=== PATIENT | female | born 1950 | race Caucasian/White ===

== ENCOUNTER 2018-10-31 05:05 | Inpatient (IN) | payer OTHER ==
[~2018-10-31] VITALS: Ht 167.6 cm; Wt 60.1 kg
--- NOTE | 2018-10-31 06:39 | NUR ---
PATIENT ARRIVED BY EMS ON 10/31/2018 @ 0530 AND ROOMED IN RM 523B. PATIENT REPORTS HER FULL NAME IS Angelica Tidwell 1950, 68 Y.O. f NEVER . WEARS GLASSES, BUT DOES NOT HAVE HER GLASSES WITH HER. VISION HAS GOTTEN WORSE OVER THE LAST FEW MONTH. HAS OWN TEETH, NO DENTURES, HEARING IS HARD TO HEAR, HAS NO HEARING AIDS. HAS A HEADACH ABOVE THE EYEBROWS AND FOREHEAD 5-6/10WHICH COMES AND GOES 3-4 TIMES A WEEK. OCCASIONALLY HAS BACK PAIN AND STIFF NECK. REPORTS NO MEDICAL ISSUES. WHEN ANXIOUS HER HEART POUNDS, AND BREATHS FAST, AND CANT CONTROL. FEELS LIKE I CANT GET AIR. SHAKES, ROCKING AND JERKING WHEN ANXIOUS. DOES NOT EAT MUCH AT ALL. DRINKS BOOST X 2-3 A DAY TO SUPPLEMENT FOOD INTAKE. HAS CONSTIPATION ALTERNATING WITH STOOL SOFTENERS AND LAXATIVE. DOES NOT SMOKE NOW, HAS SMOKED 18 YEARS AGO. REPORTS IS CONTINENT OF B&B. URINATES OFTEN, OTHERWISE, URINATES WITHOUT BURNING OR DISCOMFORT. UA NEGATIVE. REQUESTED BRIEFS, WHICH WERE PROVIDED. SKIN ON BOTTOM IS INTACT. D/C IV IN LFA, BRUISE IN R F A. PEDAL PULSES IN FEET, LESS THAN 3 SECONDS CAP REFILL. HEELS HAVE NO SPONGINESS OR BREAKDOWN. AT THIS TIME WAITING ON A COMPLETE MED LIST FROM SISTER. PATIENT HAS BEEN LIVING AT HOME WITH SISTER, WHO CANNOT CONTINUE TO CARE FOR HER. A&OX3-4.
[2018-10-31 10:17] LABS: HEMOGLOBIN 12.3 gm/dL (12.0-15.0); MCH 25.6 pg (26.0-34.0); MCHC 31.6 g/dL (28.0-37.0); RBC 4.82 mil/uL (4.20-5.00); RDW 17.7 % (10.5-14.5); WBC 11.9 thou/uL (4.0-11.0)
[2018-10-31 10:24] VITALS: BP 170/80
[2018-10-31 10:24] LABS: CALCIUM 9.4 mg/dL (8.5-10.1); CREATININE 0.8 mg/dL (0.6-1.0); MAGNESIUM 2.1 mg/dL (1.8-2.4); POTASSIUM 3.8 mmol/L (3.5-5.1)
--- NOTE | 2018-10-31 13:30 | NUR ---
Pt stated that she has been isolating due to social phobias and afraid of driving and public places. Pt lives alone in the home and has a supportive sister.
--- NOTE | 2018-10-31 18:48 | NUR ---
HAS BEEN VISIBLE IN DAYRROM WITH PEERS THROUGHOUT SHIFT-INITALLY REPORTS MOOD "SCARED/A LITTLE OVERWHELMED" BUT DOES APPEAR MORE RELAXED-SOCIAL WITH PEERS AND VISITNG WITH FEMALE PEERS AT SUPPER.
[2018-10-31 19:53] VITALS: BP 150/62
--- NOTE | 2018-11-01 02:59 | NUR ---
RECEIVED REPORT FROM OFFGOING DAY NURSE. ASSUMED CARE @ 19:15. IN BED EYES CLOSED, RESPIRATIONS EVEN AND UNLABORED. AWAKENED TO VOICE, COOPERATED WITH ASSESSMENT. AMBULATED TO TOILET WITH STAND BY ASSIST. SHAKING OF EXTREMITIES NOTED. REPORTS FEELS ANXIOUS AND TIRED. REPORTS LAID DOWN AFTER DINNER. PRN OLANZAPINE 5 MG PROVIDED @ 20:30, TYLENOL 650 PROVIDED FOR MLEO AND GENERAL DISCOMFORT. WITHIN 30 MINUTES NOTED TO HAVE EYES CLOSED, RESPIRATIONS EVEN AND UNLABORED. BED IN LOW POSITION, BED ALARM SET. CONTINUING TO MONITOR Q 12 MINUTES FOR PATIENT SAFETY.
--- NOTE | 2018-11-01 06:37 | NUR ---
SLEPT 10.5 HOURS. AWAKENED @ 0630 SHAKING AND C/O ANXIETY. PRN OLANZAPINE PROVIDED. WILL CONTINUE TO MONITOR FOR IMPROVEMENT.
[2018-11-01 09:33] VITALS: BP 137/82
--- NOTE | 2018-11-01 10:43 | NUR ---
UPON INITIAL APPROACH THIS AM LYING IN POSITION ON BED-ANXIOUS FACIAL EXPRESSION AND STUTTERING SPEECH BUT VERBALIZES "I AM SO ANXIOUS I CAN'T STOP THIS SHAKING" IS NOTED TO HAVE JERKING TYPE MOVEMENT OF TORSO AND UPPER EXTREMETIES WHICH SHE IS ABLE TO STOP UPON VERBAL COMMAND BUT IMMEDIATLY RESUMES STATING "I CAN'T CONTROL IT I NEED SOME MEDICINE" WAS RECEPTIVE TO DEEP BREATHING AND GROUNDING INSTRUCTION BUT THEN STATES "I CAN'T DO IT" OR "ITS NOT WORKING"VS OBTAINED AND BP AND PULSE WNL AT I37/80-P 82 02 SAT 98 PERCENT DESPITE RAPID SHALLOW (HYPERVENTALATING) STYLE BREATHING.
--- NOTE | 2018-11-01 18:06 | NUR ---
HAS COME OUT OF ROOM FOR SHORT INTERVALS TODAY-WHEN OUT IN DAYROOM BECOMES LOUDLY TEARFUL,SOBBING,RAPID RESPIRATIONS-DOES APPEAR SLIGHTLY CALMER IN ROOM WITH DECREASED STIMULUS-CONTINUES TO STATE SHE "CAN'T" DO RELAXATION OR GROUNDING EXERCISES AT THIS TIME BECAUSE ANXIETY IS "TO BAD" DID APPEAR TO NAP BRIEFLY APPROX 10 KMINUTES AFTER RECEIVING AM KLONOPIN BUT WAS TEARFUL UPON WAKING.ZYPREXA 5 MG PO PRN AT 1800 FOR CONTINUED SEVERE ANXIETY-DID COME OUT FOR SUPPER-REMAINS TEARFUL BUT NOT SOBBING
[2018-11-01 18:44] LABS: URINE BILIRUBIN NEGATIVE (Negative); URINE BLOOD TRACE (Negative); URINE CLARITY CLEAR; URINE COLOR YELLOW; URINE GLUCOSE-RANDOM* NEGATIVE (Negative); URINE KETONES NEGATIVE (Negative); URINE LEUKOCYTES-REFLEX NEGATIVE (Negative); URINE NITRITE-REFLEX NEGATIVE (Negative); URINE PROTEIN (DIPSTICK) NEGATIVE (Negative); URINE SPECIFIC GRAVITY 1.015 (1.005-1.035); URINE UROBILINOGEN 0.2 E.U./dl (0.2-1.0)
[2018-11-01 19:56] VITALS: BP 122/74
--- NOTE | 2018-11-01 20:02 | NUR ---
ASSUMED CARE ON 11/01/18. IN BED, EYES CLOSED RESPIRATIONS EVEN AND UNLABORED AWAKENS TO VOICE AND APPEARS TO BE CALM AND SMILES WHEN SHE SPEAKS. NO SHAKING OR TEARFULNESS OBSERVED AT THIS TIME. UP OUT OF BED AND AMBULATES THRU THE HALLS AND INTO THE DAY ROOM WATCHING TELEVISION FOR A SHORT TIME AND THEN AMBULATING BACK TO HER ROOM. WILL CONTINUE TO MONITOR Q 12 FOR PATIENT SAFETY.
--- NOTE | 2018-11-02 00:33 | NUR ---
OUT OF BED @ 2300, REFILLED HER ICE WATER AND THEN AMBULATED BACK TO BED. SLEEPING AT THIS TIME. BED IN LOW POSITION, BED ALARM SET, WILL CONTINUE TO MONITOR Q 12 FOR PATIENT SAFETY.
[2018-11-02 03:24] VITALS: BP 122/74
[2018-11-02 05:43] LABS: HEMATOCRIT 35.5 % (37.0-47.0); HEMOGLOBIN 11.6 gm/dL (12.0-15.0); MCH 26.3 pg (26.0-34.0); MCHC 32.6 g/dL (28.0-37.0); MCV 80.6 fL (80.0-100.0); RBC 4.41 mil/uL (4.20-5.00); RDW 17.5 % (10.5-14.5); WBC 6.6 thou/uL (4.0-11.0)
--- NOTE | 2018-11-02 05:47 | NUR ---
SLEPT 8.2 HOURS
[2018-11-02 09:01] VITALS: BP 141/80
--- NOTE | 2018-11-02 12:09 | NUR ---
0700: Report rec from noc shift, care assumed. [id number]: Ambulatory independently in room, hedrick and to , pt voices nervous feeling. Ambulatory to , gait steady, feeds self, takes meds whole w/o difficulty. Anxiety noted with activity and interaction, Zyprexa 5mg po given @ 09, takes meds whole w/o difficulty. Pt reurned to room after a.m. meal, appetite poor, this nurse walked pt from room to common area for 09 therapy group, no participation noted.
[2018-11-02 19:56] VITALS: BP 120/68
--- NOTE | 2018-11-02 22:33 | NUR ---
PT PACING WOOD AND WATCHING TV WITH PEERS. PT REQUESTED STOOL SOFTENER AND SLEEPING PILL WINDOW DISPLAY DESIGNER CONTACTED AND ORDERS RECEIVED. GOOD EYE CONTACT, BLUNTED AFFECT, STEADY GAIT.
[2018-11-03 08:45] VITALS: BP 156/92
--- NOTE | 2018-11-03 16:49 | NUR ---
SW observe the pt she seem very anxious in worried that she will have to stay in the hospital until her guardianship. VLADIMIR explained at this time the hospital will not be filing for guardianship. VLADIMIR explained the doctor is running test, and reassuring the pt that medication is assisting her with stabilizing her mentally. VLADIMIR will follow-up with on tommorrow.
--- NOTE | 2018-11-03 17:35 | NUR ---
ASSUMED CARE AT 0700 THIS MORNING. PT. INITIALLY WALKING DOWN THE WOOD ASKING FOR STAFF TO ASSIST HER. THIS RN WALKED TO THE DINING ROOM WITH HER AND ALLOWED HER TO SIT DOWN. AFTER BREAKFAST, THIS RN SAT DOWN AND TALKED WITH THE PT. SHE WAS INFORMED STAFF WILL BE WATCHING OVER HER, BUT NOT NECESSARILY DOING THINGS FOR HER. SHE STATED, "YOU AREN'T HELPING ME TO DO ANYTHING?" I INFORMED THAT STAFF WILL WATCH OVER HER, BUT SHE COULD DO THINGS FOR HERSELF. SHE WAS LATER NOTED TO BE UP WALKING, NO SHAKING AND NO ANXIETY NOTED. AT DIFFERENT TIMES DURING THE DAY SHE WOULD ASK FOR ANXIETY MEDICATIONS. SHE DID RECEIVE THAT TIMES ONE TIME. SHE WAS ON THE UNIT FOR GROUPS. SHE DENIES SI/HI OR AVH TODAY. SHE WAS COOPERATIVE WITH TAKING MEDICATIONS.
[2018-11-03 20:04] VITALS: BP 130/81
--- NOTE | 2018-11-03 22:00 | NUR ---
Pt reported increased anxiety at shift change. Hs meds provided, Dr Teague on unit increased hs does of medication, pt informed and compliant. No tremors noted until pt was holding water and cup of medications. Blunted affect, good eye contact, clear speech, steady gait. Pt verbalized concern re her dc plans, that when she came here she thought it would be for more than a few days. pt stated her younger sister has anxiety but not as much as pt.
--- NOTE | 2018-11-04 04:09 | NUR ---
PT AWAKENED REPORTED WANTING TO GET READY FOR THE DAY BUT ANXIOUS. PT INFORMED IT WAS ONLY 0345 AND SHE SHOULD CONTINUE RESTING AND NOT WORRY ABOUT GETTING UP AND READY FOR THE DAY. PT HAS SHAKES INTERMITTENTLY, WHEN SHE IS INTERACTING IN CONVERSATION THE SHAKES DECREASE.
--- NOTE | 2018-11-04 05:47 | NUR ---
PT FELL ASLEEP APPROXIMATELY ONE HOUR AFTER PRN MEDICATION.
--- NOTE | 2018-11-04 13:41 | NUR ---
0715: Report rec from [facility] shift, care assumed. [id number]: Ambulatory independently in room, halls and to DR for a.m. meal, gait steady, feeds self, appetite fair, takes meds whole w/o difficulty. Intermittent anxiety noted, PRN Zyprexa given, with minimal improvement. New orders rec for colace BID and Miralax PRN, education provided to pt about medications. Attended 0900 therapy group, minimal participation noted. Cooperative with staff and social with other pts.
[2018-11-04 19:44] VITALS: BP 130/78
--- NOTE | 2018-11-04 22:20 | NUR ---
RECEIVED REPORT FROM OFFGOING DAY NURSE AND ASSUMED CARE @ 19:15. SITTING IN THE DAY ROOM WITH PEERS WATCHING BASEBALL ON TV. REPORTS THIS IS THE BEST THAT SHE HAS FELT SINCE SHE ARRIVED AT THE HOSPITAL. A&O X 3. HRRR, LUNGS CTA, ABD NORMOACTIVE X 4 Q. DENIES SI AND HI. DENIES HALLUCINATIONS. REPORTS ANXIETY IS THE BEST THAT IT HAS BEEN SINCE SHE ARRIVED AT THE HOSPITAL. REPORTS SHE WANTS A SLEEPING PILL. MELATONIN 5 MG PROVIDED FOR INSOMNIA, AND TYLENOL 650 PROVIDED FOR GENERAL PAIN.
--- NOTE | 2018-11-05 06:32 | NUR ---
slept 7 hours overnight
[2018-11-05 09:50] VITALS: BP 142/83
[2018-11-05 10:46] VITALS: BP 142/83
--- NOTE | 2018-11-05 17:58 | NUR ---
PT. STARTED THE SHIFT AT 0700 ASKING FOR "SOMETHING FOR MY NERVES". PT. GIVEN HER 0900 MEDICATIONS. SHE MADE NO MORE COMPLAINTS ABOUT HER "NERVES" UNTIL 1200. SHE ASKED FOR PRUNE JUICE SO HER BOWELS WOULD MOVE. SHE DRANK THAT WITHOUT PROBLEMS. SHE RECEIVED TYLENOL FOR BACK PAIN. SHE TOOK HER MEDICATIIONS WITHOUT PROBLEMS NOTED. SHE AT MEALS ON THE UNIT. SHE ATTENDED GROUPS. WHEN ASKED ABOUT SI/HI, SHE DENIED IT. NO S/S AVH NOTED. SHE HAS BEEN NEEDY AND ASKING FOR ATTENTION OFTEN FROM PEERS AND STAFF.
[2018-11-05 19:42] VITALS: BP 124/77
--- NOTE | 2018-11-05 22:25 | NUR ---
RECEIVED REPORT FROM OFFGOING DAY NURSE. ASSUMED CARE @ 19:15. UP AD CURTIS AMBULATING FROM THE DAY ROOM THRU THE HALLWAYS TO HER BED ROOM AND BACK TO THE DAY ROOM. ASKING FOR HER SLEEPING MEDICINE. WHEN ORIENTED TO THE TIME AND EXPLAINED THAT SHE WILL BE GETTING HER NIGHT MEDS CLOSER TO 2100, SHE CONTINUED AMBULATING. PRNS MELATONIN, TYLENOL 650 AND MIRILAX 17 GM PROVIDED @ 21:15. A&OX 4. REPORTS REASON SHE IS IN THE HOSPITAL NOW IS DUE TO MULTIPLE PANIC ATTACKS TAKING HER TO THE ER X 3. REPORTS HAS HAD SMALL BM SINCE ARRIVING @ [facility]. IN BED AND ASLEEP WITHIN 30 MINUTES OF TAKING HS MEDS. BED IN LOW POSITION, WILL CONTINUE TO MONITOR Q 12 MINUTES.
[2018-11-05 22:32] VITALS: BP 124/77
--- NOTE | 2018-11-06 00:46 | NUR ---
AWAKENED @ 0040, TOILETED SELF, THEN ASKED FOR TOWELS TO TAKE A SHOWER. THE AIDE ATTEMPTED TO ASSIST HER WITH A SHOWER, SHE BECAME TEARFUL AND SAID THAT SHE DID NOT KNOW WHAT TO DO. CONFUSION AND ANXIETY NOTED. GIVEN @ 0040, PATIENT HAD A SMALL BOOK OF DAILY WORDS OF ENCOURAGEMENT. I ASKED HER TO READ TODAYS MESSAGE, WHICH SHE DID WITH ENCOURAGEMENT, THEN AFTER SHE TOOK THE MEDICATION FOR ANXIETY, I READ A MESSAGE AND WE REPEATED THE SHORT VERSE TOGETHER, TWO TIMES. I ENCOURAGED HER TO THINK OF ENCOURAGING THOUGHTS AND SHE LAID DOWN AND TRIED TO SLEEP, WILL CONTINUE TO MONITOR Q 12 FOR PATIENT SAFETY.
--- NOTE | 2018-11-06 06:12 | NUR ---
SLEPT 8.2 HOURS OVERNIGHT 11/05/18.
[2018-11-06 07:35] VITALS: BP 153/89
--- NOTE | 2018-11-06 12:46 | NUR ---
Date of Admission: 10/31/18 Date of Activity Therapy Assessment: 11/03/18 Activity Goal: Decrease social isolation and anxiety symptoms Initial Goal: 1 Group activity/day Weekly progress towards goal: On track Group participation level: Moderate Behaviors observed: Patient has not consistently met goal. She exhibits high level of anxiety and at times will become panicked and unable to participate, returning to her room. Patient also exhibits poor concentration and will dismiss self from group early. Plan: No change towards goal
--- NOTE | 2018-11-06 12:53 | NUR ---
VLADIMIR schedule a FM on November 09, 2018 at 11:30am.
[2018-11-06 12:57] VITALS: BP 153/89
--- NOTE | 2018-11-06 15:49 | NUR ---
ASSUMED CARE AT 0700 TODAY. PT. HAS TALKED ABOUT BEING ANXIOUS TODAY BUT HAS ONLY ASKED ONCE AT 1545 FOR ANXIETY MEDICATION. SHE HAD HER ANTIANXIETY MEDICATION AT 1400 TODAY. SHE TOOK HER MEDICATION WITHOUT PROBLEMS. SHE HAD TYLENOL ABOUT 1500 FOR C/0 OF HEADACHE. SHE ATTENDED GROUPS. SHE HAS BEEN WALKING THE HALLS OFTEN TODAY. SHE HAS BEEN STEADY ON HER FEET. SHE HAS SHOWN LITTLE SIGNS/SYMPTOMS OF SHAKING TODAY. SHE ATE MEALS ON THE UNIT. SHE HAS BEEN PLEASANT WHEN TALKING WITH STAFF AND PEERS. SHE HAS BEEN OUT OF HER ROOM MOST OF THE DAY.
[2018-11-06 19:27] VITALS: BP 154/85
--- NOTE | 2018-11-07 06:21 | NUR ---
VSS, TOOK HS MEDS WHOLE WITH WATER. ANXIETY WELL MANAGED IN THE EVENING, SLEPT WELL, IN BED ALL NIGHT, TOTAL SLEEP HOURS 8.0.
[2018-11-07 07:23] VITALS: BP 136/82
[2018-11-07 20:28] VITALS: BP 128/79
--- NOTE | 2018-11-07 23:39 | NUR ---
Care assumed of patient at 1915: Patient seated in day room at start of shift. Patient watching TV with other peers. Interacting well with staff and peers. Appears to be anxious at times but is far less anxious than previous shifts. Patient denies SI/HI/AH/VH. No s/s of delusional or paranoia behaviors. Denies pain or discomfort. Ate 100% HS snack. Took HS medication without difficulty. Patient reported that she is feeling dizzy at times. Patient then asked for a medication to help her sleep. Patient educated on scheduled medication given and PRN medication available. Patient then educated on possible side effects of each medication. Patient reported that she would like to try to go to sleep without additional PRN medication. Patient educated on a needed adjustment period for her body to get used to medication prescribed. Patient grateful and appeared less anxious afterward. Patient smiled a couple times this shift and doesn't appear to be having the anxiety tremors that she has had in previous shifts. Patient was able to retire to bed and go to sleep without any difficulty. Patient has been resting quietly since.
[2018-11-08 09:05] VITALS: BP 146/86
[2018-11-08] MEDS ORDERED: PAXIL10 MG PO (11:10)
[2018-11-08] MEDS ORDERED: CLONAZEPAM 0.50.5 M1 PO (11:11)
[2018-11-08] MEDS ORDERED: NORVASC5 MG PO (11:11)
[2018-11-08] MEDS ORDERED: LIPITOR10 MG PO (11:11)
[2018-11-08] MEDS ORDERED: XANAX 0.25 MG0.25 MG PO (11:12)
[2018-11-08] MEDS ORDERED: PROPRANOLOL 1010 MG PO (11:12)
[2018-11-08] MEDS ORDERED: IRON325 PO (11:12)
[2018-11-08] MEDS ORDERED: TRAZODONE HCL50 MG PO (11:12)
[2018-11-08] MEDS ORDERED: PROZAC20 MG PO (11:13)
[2018-11-08] MEDS ORDERED: BUSPIRONE HCL10 MG PO (11:13)
--- NOTE | 2018-11-08 19:18 | NUR ---
PATIENT REPORTS INCREASED ANXIETY THIS MORNING. PATIENT MAKING NOTICEABLE ATTEMPTS TO PARTICIPATE IN GROUPS. PATIENT DID REQUEST SHORT TIME IN ROOM APPROX 15-20 MIN. PATIENT CAME BACK TO DINING WOOD WITHOUT PROMPTING. STATED THAT SHE FELT LIKE SHE NEEDED A MOMENT AWAY DUE TO ALL THE NOISE OF DINING WOOD. PATIENT IN DINING WOOD MOST OF DAY. PATIENT UP AD CURTIS WITH STEADY BALANCED GAIT. PATIENT DID REPORT FEELING DIZZY WITH MEDICATION, DR. MILLS INFORMED OF PATIENT CONCERNS.
--- NOTE | 2018-11-08 22:45 | NUR ---
Care assumed of patient at 1915: Patient alert and oriented x4. Patient pleasant and cooperative. Patient anxious this shift. Denies SI/HI/AH/VH. No s/s of delusional or paranoia behaviors. Patient has a bilateral hand tremor at times. Patient has been doing well removing the words "I can't" out of her vocabulary and starting to say "I'm having trouble with .....". Patient seated in day room at the start of shift with other peers. Interacting well with staff and peers. At the start of shift, patient reports that she is frustrated that her medication regimen is not working well for her at this time. Reports that she doesn't want to take any medication anymore. Ordered medications were reviewed with patient. Discussed side effects and uses. Patient grateful for education. Patient ate 100% HS snack. Took HS medication without difficulty. Patient requested for her laundry to be washed. Which staff is assisting with. Patient retired to bed, then came out of her room 10 minutes later stating she can't sleep and she needs more pills. Nurse spoke with patient about praying, meditation, reading, writing. Discussed finding alternate coping mechanisms to become relaxed rather than taking more medication. Patient stated that she would try to take deep breaths and pray. Nurse followed up 20 minutes later and patient was sleeping quietly. Patient continues to rest quietly at this time.
[2018-11-09 09:33] VITALS: BP 146/85
[2018-11-09 11:48] VITALS: BP 146/85
--- NOTE | 2018-11-09 15:04 | NUR ---
PATIENT REPORTS INCREASE IN ANXIETY AT THIS TIME. REQUESTED PRN MEDICATION FOR ANXIETY. REPORTS NEEDING TO HAVE ALONE TIME IN ROOM BUT AFRAID TO BE ALONE AT THE SAME TIME. PATIENT VOICING CONCERNS ABOUT HOW SHE WILL BE ABLE TO MANAGE ANXIETY AT HOME. STATES THAT SHE DOES NOT WANT TO HAVE MEDS THAT PUT HER TO SLEEP THROUGHOUT THE DAY. INQUIRING ABOUT MEDICATION SHE WILL BE PRESCRIBED TO GO HOME WITH. REPORTS THAT CLONAZEPAM AND XANAX PREVIOUSLY WORKED FOR HER WITHOUT MAKING HER SLEEPY. STATES THAT SHE IS CURRENTLY BETWEEN PCP'S AND THAT HER PREVIOUS PCP DOES NOT PRESCRIBE HER ANXIETY MEDS.
--- NOTE | 2018-11-09 16:57 | NUR ---
PATIENT CALM AND ALERT THIS MORNING. STATES THAT SHE FEELS LESS DIZZY AND FOGGY. STATED THAT SHE SLEPT WELL. NO NEED FOR PRN MEDS UNTIL AFTERNOON GROUP. PATIENT STATED SHE HAD DIFFICULTY BEING IN SMALL ROOM WITH OTHER PATIENTS. PRN MEDS GIVEN PER ORDERS. PATIENT WENT TO ROOM TO REST AND MANAGE ANXIETY FOR APPROX 15-20 MIN. STATES SHE DOES NOT KNOW IF MEDS ARE WORKING BUT WAS ABLE TO RETURN TO DINING WOOD WITHOUT ANY PROMPTING. IN DINING WOOD AND JOKED WITH STAFF ABOUT MAG CITRATE DOSE WHEN PATIENT ASKED FOR HERE MEDS FOR CONSTIPATION. CHOSE TO SIT WITH OTHER PATIENTS AT TABLE POST PRN MEDICATION.
[2018-11-10 01:21] VITALS: BP 146/85
--- NOTE | 2018-11-10 04:51 | NUR ---
PT ANXIOUS, AND ON THE EDGE OF THE GROUP. AFTER EVENING SNACKS, REQUESTED MEDS EARLY AND SOMETHING FOR SLEEP. ADVISED THAT SHE HAD ZYPREXA AND MELATONIN. CLAIMS THAT TRAZADONE WORKED WELL FOR HER IN THE PAST. SUGGESTED SHE INFORM MD IN THE AM OF HER PREFERENCE. SLEPT UNTIL ABOUT MIDNIGHT, PROVIDED PRN OF ZYPREXA, AND PT SLEPT WELL THE REST OF THE NIGHT TO THIS POINT.
[2018-11-10 07:30] VITALS: BP 127/78
--- NOTE | 2018-11-10 07:40 | NUR ---
PT STATED SHE DIDN'T FEEL GOOD TODAY, PT STATED THAT SHE DIDN'T SLEEP VERY WELL WAS UP AT 0100. PT STATED SHE TOSSED AND TURNED. PT STATED SHE IS HAVING LOOSE STOOLS AND TOOK A LAXATIVE AND IS WORRIED ABOUT NOT HAVING SOLID STOOL FIRST. PT HANDS SHAKEY AND ARMS. PT DENIES ANY NAUSEA OR PAIN. DISCUSSED ABOUT PT ANXIETY AND THAT HER MOM AND AUNT HAD ANXIETY AND HERS STARTED IN JULY. PT STATED SHE IS ALSO CLAUSTROPHOPIC. PT STATED THE ZYPREXIA IS NOT HELPING WITH ANXIETY, IT IS PRN.
[2018-11-10 09:37] VITALS: BP 127/78
--- NOTE | 2018-11-10 11:27 | NUR ---
Nutrition: Pt assessed for LOS on [facility] unit. Admitted with unspecified anxiety disorder. Met with her in day area. Pt very appropriate for interview. She is averaging 68% of meals over the last 5 days, on a regular diet. She denies any appetite or po intake concerns. Does report struggling with constipation and has been taking bowel meds to help. Notes finally having some liquid stool output last night. States stomach no longer hurts or feels firm. Remain on scheduled docusate Na, plus PRN Miralax and Milk of Mag. RD educated on high fiber foods, increased water intake and increased activity. Pt admits her activity has been significantly reduced the last 1-2 months d/t health. At a healthy wt and BMI 21.4 kg/m2. No further needs. Low nutrition risk.
[2018-11-10 19:39] VITALS: BP 118/74
[2018-11-10 22:11] VITALS: BP 118/74
[2018-11-11 11:19] VITALS: BP 145/79
[2018-11-11 11:20] VITALS: BP 135/85
--- NOTE | 2018-11-11 13:08 | NUR ---
PT STATED SHE STILL HAS SOME DIZZINESS, PT STATED THAT SHE HAS TAKEN CLONZEPAM BEFORE BUT NOT THREE TIMES A DAY AND SHE IS WORRIED IF SHE GOES SOMEWHERE, THEY WILL NOT BE ABLE TO UNDERSTAND LIKE WE DO. SHE UNDERSTANDS THAT SHE NEEDS SOMETHING FOR ANXIETY.
--- NOTE | 2018-11-11 15:00 | NUR ---
REFUSED [address] MILLS AWARE.
--- NOTE | 2018-11-11 16:18 | NUR ---
PT STATED THAT HER DIZZINESS IS BETTER. PT APPEARS MORE ALERT NOT FOGGY.
--- NOTE | 2018-11-11 17:32 | NUR ---
ADM TYLENOL 325MG 2 TABS FOR COMPLAINS OF NOT FEELING GOOD. PT STATED SHE IS AFRAID OF TELLING DUE TO HER NEEDING THE MED FOR HER ANXIETY.
--- NOTE | 2018-11-11 18:44 | NUR ---
ADM ZYPREXIA 5MG PO FOR ANXIETY. PT SHAKING TO HANDS.
[2018-11-11 19:16] VITALS: BP 126/72
--- NOTE | 2018-11-12 01:19 | NUR ---
PATIENT AMBULATED AD CURTIS TO ROOM, AND LAID DOWN IN BED IN THE EARLY EVENING. PT TOOK HS MEDS WHOLE WITH WATER. DENIES HI, SI. C/O AGITATION AND ANXIETY. HAD BM TODAY. WILL CONTINUE TO MONITOR.
[2018-11-12 09:30] VITALS: BP 138/79
--- NOTE | 2018-11-12 12:39 | NUR ---
Had called and left a message with Carlos Mccallum to inquire about Respite care. Rebekah just called back and left a VM that they had no respite beds. Faxing infor to [facility] as they do have beds and will wait to hear back from Aaliyah
--- NOTE | 2018-11-12 15:55 | NUR ---
HAS HAD EPISODES OF INCREASED ANXIETY TODAY PER PT REPORT DURING 1;1 INTERACTION. TRIGGER TO ELEVATED ANXIETY LEVEL APPEARS TO BE POSSIBLE DC WITHIN NEXT DAY OR TWO-NOTED TO BE WRINGING HANDS,INCREASED ANXIOUS FACIAL EXPRESSION WHEN SPEAKING ABOUT SELF DOUBTS AND WHAT IF SCENERIOS AFTER DC. MINIMAL RESPONSE TO SUPPORT/EDUCATION PROVIDED- "I DON'T THINK I CAN DO IT" OR "I AM NOT THAT STRONG" ETC
[2018-11-12 20:21] VITALS: BP 140/80
--- NOTE | 2018-11-13 00:38 | NUR ---
Care assumed of patient at 1915: Patient alert and oriented x4. Patient pleasant and cooperative. Patient has some anxiety present, reporting anxiety about discharge. Appears calmer than previous shifts. Ate 100% HS snack. Reports that she feels like she is "starving". Patient given extra snack this PM. Patient denies any pain or discomfort. Denies SI/HI/AH/VH. No delusional or paranoia behaviors observed. No visible extremity tremors observed. Reports that she is tired and retired to bed earlier than usual this shift. Patient awoken to give HS medication. Patient reports that she is nervous about discharge but is hopeful that it will be a good place for her to live. Patient resting quietly in bed at this time.
[2018-11-13 07:30] VITALS: BP 137/68
--- NOTE | 2018-11-13 07:30 | NUR ---
PT ANXIOUS TODAY STILL HAS SOME DIZZINESS. PT UP WALKING WITH STEADY GAIT. PT WANTED TYLENOL DUE TO NOT FEELING GOOD. PT LUNGS CLEAR. PT STATED SHE HAD A SMALL BOWEL MOVEMENT AND WANTED A LAXATIVE. SHE WANTED METAMUCIL THIS AM.
--- NOTE | 2018-11-13 08:17 | NUR ---
Left another message for Irina at [facility]
--- NOTE | 2018-11-13 08:18 | NUR ---
ADM MIRALAX 17GM PO FOR COMPLAINTS OF CONSTIPATION.
[2018-11-13 08:29] VITALS: BP 137/68
--- NOTE | 2018-11-13 09:58 | NUR ---
ADM ZYPREXIA 5MG PO FOR ANXIETY.
--- NOTE | 2018-11-13 12:49 | NUR ---
Date of Admission: 10/31/18 Date of Activity Therapy Assessment: 11/03/18 Activity Goal: Manage anxiety symptoms Initial Goal: 1 Group activity/day Weekly progress towards goal: Achieving current goals Group participation level: Varies Behaviors observed: Patient participates consistently in 2 groups per day. Participation varies based on level of anxiety. Patient remains in room entire session and has improved in confidence (sharing thoughts with group members.) Plan: 2 groups per day
[2018-11-13] MEDS ORDERED: LIPITOR10 MG PO (14:58)
[2018-11-13] MEDS ORDERED: NORVASC5 MG PO (14:58)
[2018-11-13] MEDS ORDERED: CLONAZEPAM 0.50.5 M1 PO (14:59)
[2018-11-13] MEDS ORDERED: REMERON 30 MG T30 M1 PO (15:00)
[2018-11-13] MEDS ORDERED: ZYPREXA 5 MG TAB5 M1 PO ×2 (15:01→15:03)
--- NOTE | 2018-11-13 15:14 | NUR ---
Pt discharging this afternoon to [facility] - arranged for a W/C transport between 5-5:30 this afternoon. Contact for this teletypewriter operator was Shannon - [phone]. Spoke to sister and gave her update. Sister happy with d/c plans and will contact them with her contact info.
--- NOTE | 2018-11-13 16:58 | NUR ---
GAVE REPORT TO MYNOR AT [facility]. PT SUPPOSED TO LEAVE VIA W/C.
--- NOTE | 2018-11-13 18:35 | NUR ---
PT LEFT VIA W/C VAN TO [facility]. PT HAD JUST LAID DOWN TO REST WHEN RIDE CAME. PT APPEARED CALM WHEN LEAVING.
--- NOTE | 2018-11-15 11:13 | D ---
[facility] [place] [address] DISCHARGE SUMMARY Name: ULYSSES ARREGUIN Room #: 523B-B [facility] IN M.R.#: [id number] Admission: 10/31/18 Attend Phys: Tyrell Levine DO Discharge: 11/13/18 Date of : 50 Report #: [id number] THIS REPORT FOR: //name// CC: Tyrell Levine [facility] unknown DATE OF SERVICE: 11/13/2018 PSYCHIATRIC DISCHARGE SUMMARY ATTENDING PHYSICIAN: Tyrell Levine DO. BUSINESS LEADER AT THE TIME OF DISCHARGE: George Herr MD. DISCHARGE DIAGNOSES: Major depressive disorder, recurrent, severe degree with psychotic features, improved; generalized anxiety disorder. Medical comorbidities include hypertension, mild orthostatic hypotension, hyperlipidemia, and constipation. DISCHARGE PLAN: She is discharging to the assisted living facility at [facility]. The patient will get a general medical and psychiatric followup at that facility. ACTIVITY LEVEL: As tolerated. No alcohol, no illicit drugs. DISCHARGE MEDICATIONS: Atorvastatin 10 mg p.o. daily for hyperlipidemia, amlodipine 5 mg p.o. daily for hypertension, clonazepam 0.25 mg p.o. at 0900, 1500, and 2200 for at least 2 weeks and recommend considering taper mirtazapine 30 mg p.o. at bedtime for antidepressant, olanzapine 5 mg p.o. q. 4 p.r.n. for severe anxiety and agitation, olanzapine 5 mg p.o. at bedtime daily for augmentation of depression and anxiety. LABORATORY DATA: This admission are as follows: On 11/02/2018, CBC: H and H 11.6, hematocrit of 35.5, white count 6.6, platelet 262. We know that this was a slight decrease from H and H of 12.3 and 39.0 on 10/31/2018. Chemistries were within normal limits, estimated GFR 71. Sodium 140, potassium 3.8, chloride 103, bicarbonate 25, BUN 16, creatinine 0.8. Urinalysis was negative except for trace blood. REASON FOR ADMISSION: The patient was initially seen in [facility] Room for increased anxiety and depression. She made complaints of voices bothering her panic mood and anxiety is high. HOSPITAL COURSE: The patient was admitted to Geriatric Psychiatry Unit. She was initially on a different medication regimen. During the admission, I had [facility] [address] [place] [address] DISCHARGE SUMMARY Name: ULYSSES ARREGUIN Room #: 523B-B [facility] IN M.R.#: [id number] Admission: 10/31/18 Attend Phys: Tyrell Levine, Discharge: 11/13/18 Date of : 50 Report #: [id number] attempted to treat her without benzodiazepine using quetiapine. She became sluggish. We switched to olanzapine. After only partial success with this, I tried clonazepam 0.5 mg 3 times a day. This was reduced to 0.25 mg 3 times a day. This seemed to benefit her best. The patient has displayed poor effort throughout the admission with her assertiveness, often stating she cannot do something, wanting others to do what she would be expected to do on her own. Even on the day of discharge, she could ambulate, but she wanted a wheelchair equipment. The patient hopefully will make some progress given the longer scope and time at the assisted living facility. I elected not to pursue a memory care kind of workup as I do not think she displays overall clinical symptomatology of a dementia patient, however, in light of continued poor progress for the next few months, that certainly could and should be reconsidered if that is the case. VITAL SIGNS: On the day of discharge are as follows: Temperature 36.6, pulse 81, respirations 16, BP 137/68, O2 sat 100%. MUSCULOSKELETAL: Normal gait and station. MENTAL STATUS EXAMINATION: This is a well-developed, fairly nourished female appearing stated age. Attention intact. Concentration intact. Speech is normal rate, normal tone. Thought process is linear and goal directed. Thought content focused on what she may have difficulty with positive catastrophizing. Some psychomotor agitation. No psychomotor retardation. Mood and affect congruent, constricted. Memory not formally tested. Insight limited. Judgment fair to limited. Fund of knowledge above average. PROGNOSIS: For this patient is guarded given the response with controlled environment in the last few weeks, however, I am optimistic that with her sister's help as well as several family meetings, things will improve. <ELECTRONICALLY SIGNED> By: Tyrell Levien DO 11/15/18 [id number] Tyrell Levine, /nt
== END 2018-11-13 18:37 | DRG 885 ==
LOC: SBH 05:05
PROVIDERS: Internal Medicine; ADMIT Psychiatry & Neurology Psychiatry
DX: F33.3 Major depressive disorder, recurrent, severe with psychotic symptoms (principal); F01.51 Vascular dementia, unspecified severity, with behavioral disturbance; F41.1 Generalized anxiety disorder; E78.5 Hyperlipidemia, unspecified; I10 Essential (primary) hypertension; D72.829 Elevated white blood cell count, unspecified; F41.0 Panic disorder [episodic paroxysmal anxiety]; K59.00 Constipation, unspecified; I95.1 Orthostatic hypotension; Z88.6 Allergy status to analgesic agent; Z79.899 Other long term (current) drug therapy
CPT/HCPCS: 10880